=== PATIENT | female | born 1950 | race Hispanic/Latino ===

== ENCOUNTER 2017-03-22 08:02 | Outpatient (CLI) | payer MEDICARE ==
[2017-03-22 09:25] LABS: Blood Urea Nitrogen 10 mg/dL (7-17)
--- NOTE | 2017-03-22 11:16 | Cat Scan Report ---
FINAL REPORT PROCEDURE: CT CHEST W CON TECHNIQUE: Consent was obtained. IV contrast was administered and axial sections and coronal and sagittal reformatted images were viewed through the chest. 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 Right mastectomy is noted with right chest port in place. The heart is normal in size. There is no pericardial effusion. Large left diaphragmatic hernia containing nonobstructed stomach and bowel is present. There is significant decrease in aeration of the left lung with underlying compressive subsegmental atelectasis noted. Largely mild degenerative changes of the spine are present. Thoracic kyphosis and dextroscoliosis is noted. Compression deformity with associated superior endplate Schmorl's node is present of T12. Mild aortic ectasia without focal saccular aneurysm is seen. Views of the upper abdomen demonstrate no gross focal abnormality of the imaged portions of the liver, spleen, pancreas, gallbladder, adrenal glands, or kidneys. Focal fatty infiltration at the falciform ligament is seen. There is no hilar or mediastinal lymphadenopathy. IMPRESSION: Right mastectomy with right-sided chest port in place. Large left diaphragmatic hernia with significant decreased aeration of the left lung when compared to the right. Thoracic kyphosis and dextroscoliosis. Patulous thoracic esophagus with retained oral contrast likely GE reflux.
--- NOTE | 2017-03-22 11:33 | Cat Scan Report ---
FINAL REPORT PROCEDURE: CT ABDOMEN PELVIS W CON TECHNIQUE: Computerized axial tomography of the abdomen and pelvis was performed after the IV injection of iodinated nonionic contrast. Oral contrast was also administered. HISTORY: MALIGNANT NEOPLASM OF NIPPLE AND AREOLA UNSPECIFIED FEMALE BREAST COMPARISON: None FINDINGS: Visualized lower thorax: Partially imaged left diaphragmatic hernia. Liver: Fatty infiltration worst at the falciform ligament. Spleen: Normal size and attenuation. Gallbladder and biliary system: Normal. Pancreas: Normal. Adrenals: Normal. Kidneys: 9 millimeter left renal and more subtle smaller left renal and right renal cysts.. GI tract: Sigmoid diverticulosis.. Lymph nodes and mesentery: Normal. Vasculature: Mild calcific atherosclerosis. No abdominal aortic aneurysm.. Bladder: Normal. Reproductive organs: Normal. Peritoneum: No free fluid. Musculoskeletal structures: Thoracolumbar levoscoliosis. Degenerative changes of the spine. Compression deformity of T12. Other: None. IMPRESSION: No definite acute abdominal/pelvic pathology. Likely old compression deformity of the T12 vertebral body. Correlate for symptomatology at this level with point tenderness suggesting recent fracture. Otherwise incidental findings as above.
--- NOTE | 2017-03-22 14:00 | Nuclear Medicine Report ---
BONE SCAN: History: Staging of breast cancer. Comparison: CT chest, abdomen and pelvis performed the same day. After injection of isotope, gamma camera imaging of the bony system was done. There is a normal uptake of isotope throughout the bony structures without areas of significantly increased or decreased uptake. Normal uptake in the urinary system is seen. Moderate to severe scoliosis is noted. IMPRESSION: No evidence for metastatic disease to the osseous structures.
== END 2017-03-22 08:03 | disposition home or self-care (01) ==
LOC: NM 08:02
PROVIDERS: ATTEND Internal Medicine Hematology & Oncology
DX: C50.912 Malignant neoplasm of unspecified site of left female breast (principal); K44.9 Diaphragmatic hernia without obstruction or gangrene; K76.0 Fatty (change of) liver, not elsewhere classified; N28.1 Cyst of kidney, acquired; K57.30 Diverticulosis of large intestine without perforation or abscess without bleeding; I77.819 Aortic ectasia, unspecified site; I70.0 Atherosclerosis of aorta; M41.85 Other forms of scoliosis, thoracolumbar region; M43.8X4 Other specified deforming dorsopathies, thoracic region; M47.899 Other spondylosis, site unspecified; M41.84 Other forms of scoliosis, thoracic region; F17.200 Nicotine dependence, unspecified, uncomplicated; Z90.11 Acquired absence of right breast and nipple
CPT/HCPCS: 36415; 71260; 74177; 78306; 82565; 84520; A9503; Q9967